=== PATIENT | female | born 1985 | race Caucasian/White ===

== ENCOUNTER 2016-08-18 19:05 | Emergency (ER) | payer SELFPAY ==
[~2016-08-18] VITALS: Ht 165.1 cm; Wt 81.6 kg
[~2016-08-18 19:05] MED LIST: CEPH-507 PO; CEPH500C PO; FLUO20CA25; GABA-488 PO; METR500T21 PO; NAPR500T PO; OMEP20CA12; ONDA8TAB13 PO; RT-ALBUINH; TRAZ-28
[2016-08-18 20:19] LABS: BILIRUBIN,URINE NEGATIVE (NEGATIVE); KETONES,URINE NEGATIVE (NEGATIVE); LEUKOCYTE ESTERASE ,URINE NEGATIVE (NEGATIVE); NITRITE,URINE NEGATIVE (NEGATIVE); PH,URINE 6 (5-9); PROTEIN,URINE NEGATIVE (NEGATIVE); UROBILINOGEN,URINE NORMAL (NORMAL)
[2016-08-18 20:29] LABS: SQUAMOUS EPITHELIAL CELL,UR 0-2 /HPF; WBC,URINE 0-2 /HPF
[2016-08-18 20:29] LABS: BASOPHILS # (AUTO) 0.1 10^3/uL (0.0-0.1); BASOPHILS % (AUTO) 1 % (0-10); EOSINOPHILS # (AUTO) 0.6 10^3/uL (0.0-0.3); EOSINOPHILS % (AUTO) 5 % (0-10); LYMPHOCYTES # (AUTO) 3.4 X 10^3 (1.0-4.0); LYMPHOCYTES % (AUTO) 31 % (12-44); MEAN CORPUSCULAR HEMOGLOBIN 31 PG (25-34); MEAN CORPUSCULAR HGB CONC 34 G/DL (32-36); MEAN CORPUSCULAR VOLUME 92 FL (80-99); MEAN PLATELET VOLUME 9.4 FL (7.4-10.4); MONOCYTES # (AUTO) 0.8 X 10^3 (0.0-1.0); MONOCYTES % (AUTO) 8 % (0-12); NEUTROPHILS # (AUTO) 6.2 X 10^3 (1.8-7.8); NEUTROPHILS % (AUTO) 56 % (42-75); PLATELET COUNT 290 10^3/uL (130-400); RED BLOOD COUNT 4.68 10^6/uL (4.35-5.85); RED CELL DISTRIBUTION WIDTH 13.4 % (10.0-14.5); WHITE BLOOD COUNT 11.1 10^3/uL (4.3-11.0)
--- NOTE | 2016-08-18 20:37 | ED Abdominal Pain ---
General Chief Complaint: Abdominal/GI Problems Stated Complaint: STOMACH PAIN/VOMITING Nursing Triage Note: c/o umbilical pain with daily vomitting [id number]. reports upper abdominal pain today Sepsis Screen: No Definite Risk Source of Information: Patient Exam Limitations: No Limitations History of Present Illness Time Seen By Provider: 20:35 Initial Comments To ER with epigastric abdominal pain and. Umbilical abdominal pain. This pain has been daily associate with nausea. States that she cannot quit vomiting. States that she has intermittent constipation but no diarrhea. No fevers or chills. This been present for about 14 days and has been worse since she recently got out of detention but was present before she went to detention. Timing/Duration: 1-2 Days Severity/Quality: Moderate Radiation: No Radiation Associated Symptoms: Nausea/Vomiting Allergies and Home Medications Allergies Coded Allergies: No Known Drug Allergies (Unverified , 11/27/15) Home Medications Fluoxetine HCl 20 Mg Capsule, #30 (Reported) Trazodone HCl 50 Mg Tablet, 100 HS, #60 (Reported) Review of Systems Constitutional: see HPI EENTM: No Symptoms Reported Respiratory: No Symptoms Reported Cardiovascular: No Symptoms Reported Gastrointestinal: See HPI, Abdominal Pain, Constipated, Denies Diarrhea, Nausea , Vomiting Genitourinary: No Symptoms Reported Musculoskeletal: no symptoms reported Skin: no symptoms reported Psychiatric/Neurological: No Symptoms Reported Endocrine: No Symptoms Reported Past Jsiuank-Xvgxcp-Uufnrp Hx Patient Social History Alcohol Use: Denies Use Recreational Drug Use: No Smoking Status: Current Everyday Smoker Type Used: Cigarettes 2nd Hand Smoke Exposure: Yes Recent Foreign Travel: No Contact w/Someone Who Travel: No Recent Infectious Disease Expo: No Recent Hopitalizations: No Immunizations Up To Date Tetanus Booster (TDap): Unknown Seasonal Allergies Seasonal Allergies: No Surgeries HX Surgeries: Yes (Toenail, approx 1997, pilonidal cyst) Surgeries: Section, Tubal Ligation Respiratory Hx Respiratory Disorders: Yes Respiratory Disorders: Asthma Cardiovascular Hx Cardiac Disorders: No Neurological Hx Neurological Disorders: No Reproductive System : No Hx Reproductive Disorders: No Sexually 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 Disease: Yes (CHLAMYDIA) 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 Genitourinary Hx Genitourinary Disorders: No Gastrointestinal Hx Gastrointestinal Disorders: Yes Gastrointestinal Disorders: Gastroesophageal Reflux Musculoskeletal Hx Musculoskeletal Disorders: Yes (carpal tunnel) Endocrine Hx Endocrine Disorders: Yes Endocrine Disorders: Diabetes, Non-Insulin dep HEENT HX ENT Disorders: No Psychosocial Hx Psychiatric Problems: Yes (Hx Bipolar disorder) Behavioral Health Disorders: Sleep Difficulties, Anxiety, Bipolar, Depression Blood Transfusions Hx Blood Disorders: No Family Medical History Significant Family History: No Pertinent Family Hx Physical Exam Vital Signs VS - Last 72 Hours, by Label 08/18/16 08/18/16 08/18/16 19:49 20:45 20:46 Temp 98.4 98.4 98.4 Pulse 79 Resp 18 B/P (MAP) 112/97 Pulse Ox 99 O2 Delivery Room Air Capillary Refill : Less Than 3 Seconds General Appearance: WD/WN, no apparent distress HEENT: PERRL/EOMI, normal ENT inspection Neck: non-tender, full range of motion Respiratory: normal breath sounds, no respiratory distress, no accessory muscle use Cardiovascular: regular rate, rhythm, no murmur Gastrointestinal: normal bowel sounds, soft, tenderness Extremities: normal range of motion, non-tender Neurologic/Psychiatric: alert, normal mood/affect, oriented x 3 Skin: normal color, warm/dry Progress/Results/Core Measures Results/Orders Lab Results Laboratory Tests Test 08/18/16 20:10 08/18/16 20:24 Range/Units Urine Color YELLOW Urine Clarity CLEAR Urine pH 6 5-9 Urine Specific Welch 1.015 L 1.016-1.022 Urine Protein NEGATIVE NEGATIVE Urine Glucose (UA) NEGATIVE NEGATIVE Urine Ketones NEGATIVE NEGATIVE Urine Nitrite NEGATIVE NEGATIVE Urine Bilirubin NEGATIVE NEGATIVE Urine Urobilinogen NORMAL NORMAL MG/DL Urine Leukocyte Esterase NEGATIVE NEGATIVE Urine RBC (Auto) NEGATIVE NEGATIVE Urine RBC NONE /HPF Urine WBC 0-2 /HPF Urine Squamous Epithelial Cells 0-2 /HPF Urine Crystals NONE /LPF Urine Bacteria NEGATIVE /HPF Urine Casts NONE /LPF Urine Mucus NEGATIVE /LPF Urine Culture Indicated NO Urine Opiates Screen NEGATIVE NEGATIVE Urine Oxycodone Screen NEGATIVE NEGATIVE Urine Methadone Screen NEGATIVE NEGATIVE Urine Propoxyphene Screen NEGATIVE NEGATIVE Urine Barbiturates Screen NEGATIVE NEGATIVE Ur Tricyclic Antidepressants Screen NEGATIVE NEGATIVE Urine Phencyclidine Screen NEGATIVE NEGATIVE Urine Amphetamines Screen NEGATIVE NEGATIVE Urine Methamphetamines Screen NEGATIVE NEGATIVE Urine Benzodiazepines Screen NEGATIVE NEGATIVE Urine Cocaine Screen NEGATIVE NEGATIVE Urine Cannabinoids Screen NEGATIVE NEGATIVE White Blood Count 11.1 H 4.3-11.0 10^3/uL Red Blood Count 4.68 4.35-5.85 10^6/uL Hemoglobin 14.4 11.5-16.0 G/DL Hematocrit 43 35-52 % Mean Corpuscular Volume 92 80-99 FL Mean Corpuscular Hemoglobin 31 25-34 PG Mean Corpuscular Hemoglobin Concent 34 32-36 G/DL Red Cell Distribution Width 13.4 10.0-14.5 % Platelet Count 290 130-400 10^3/uL Mean Platelet Volume 9.4 7.4-10.4 FL Neutrophils (%) (Auto) 56 42-75 % Lymphocytes (%) (Auto) 31 12-44 % Monocytes (%) (Auto) 8 0-12 % Eosinophils (%) (Auto) 5 0-10 % Basophils (%) (Auto) 1 0-10 % Neutrophils # (Auto) 6.2 1.8-7.8 X 10^3 Lymphocytes # (Auto) 3.4 1.0-4.0 X 10^3 Monocytes # (Auto) 0.8 0.0-1.0 X 10^3 Eosinophils # (Auto) 0.6 H 0.0-0.3 10^3/uL Basophils # (Auto) 0.1 0.0-0.1 10^3/uL Sodium Level 137 135-145 MMOL/L Potassium Level 4.1 3.6-5.0 MMOL/L Chloride Level 106 98-107 MMOL/L Carbon Dioxide Level 20 L 21-32 MMOL/L Anion Gap 11 5-14 MMOL/L Blood Urea Nitrogen 11 7-18 MG/DL Creatinine 0.70 0.60-1.30 MG/DL Estimat Glomerular Filtration Rate > 60 BUN/Creatinine Ratio 16 Glucose Level 83 70-105 MG/DL Calcium Level 9.8 8.5-10.1 MG/DL Total Bilirubin 0.4 0.1-1.0 MG/DL Aspartate Amino Transf (AST/SGOT) 20 5-34 U/L Alanine Aminotransferase (ALT/SGPT) 28 0-55 U/L Alkaline Phosphatase 64 40-136 U/L Total Protein 7.8 6.4-8.2 G/DL Albumin 4.5 3.2-4.5 G/DL Lipase 33 8-78 U/L My Orders Orders - ANDREI MARIE [employer] Cbc With Automated Diff (08/18/16 19:48) Comprehensive Metabolic Panel (08/18/16 19:48) Lipase (08/18/16 19:48) Urine Bedside (08/18/16 19:48) Ua Culture If Indicated (08/18/16 19:48) Drug Screen Stat (Urine) (08/18/16 20:34) Ct Abdomen/Pelvis Wo (08/18/16 20:34) Prochlorperazine Injection (Compazine In (08/18/16 20:45) Diphenhydramine Injection (Benadryl Inje (08/18/16 20:45) Medications Given in ED Current Medications Medications Dose Ordered Sig/Lori Route Start Time Stop Time Status Last Admin Dose Admin Diphenhydramine HCl 25 mg ONCE ONCE IM 08/18/16 20:45 08/18/16 20:46 DC 08/18/16 20:46 25 MG Prochlorperazine Edisylate 10 mg ONCE ONCE IM 08/18/16 20:45 08/18/16 20:46 DC 08/18/16 20:45 10 MG Vital Signs/I&O Vital Sign - Last 12Hours 08/18/16 08/18/16 08/18/16 19:49 20:45 20:46 Temp 98.4 98.4 98.4 Pulse 79 Resp 18 B/P (MAP) 112/97 Pulse Ox 99 O2 Delivery Room Air Blood Pressure Mean: 102 Point of Care Testing Urine -Bedside: Negative Diagnostic Imaging Diagonstic Imaging: CT Comments NAME: MISHA MALAGON [facility] REC#: [id number] PT STATUS: REG ER : 1985 PHYSICIAN: ANDREI MARIE [employer] ADMIT DATE: 08/18/16/ER Draft Date of Exam:08/18/16 CT ABDOMEN/PELVIS WO PROCEDURE: CT abdomen and pelvis without contrast. TECHNIQUE: Multiple contiguous axial images were obtained through the abdomen and pelvis without the use of intravenous contrast. INDICATION: Abdominal pain with nausea and vomiting x2 weeks. Loss of appetite. CORRELATION STUDY: 11/27/2015 FINDINGS: LOWER THORAX: Clear. LIVER: Unremarkable on unenhanced imaging. GALLBLADDER: Contracted but otherwise unremarkable. No suggestion for bile duct dilatation. SPLEEN: Unremarkable. PANCREAS: Unremarkable. ADRENAL GLANDS: Unremarkable. KIDNEYS: Normal configuration. No calcification or obstruction. ABDOMINAL AORTA: Unremarkable, nonaneurysmal. GASTROINTESTINAL TRACT: There is mild diffuse gas and fluid distention of the gastrointestinal tract. Stomach contains retained gastric contents. The colon also demonstrates mild diffuse distention with retained stool and gas. Normal appendix is present. Definitive obstruction is not suggested. Generalized haziness about the mesentery without significant abdominal ascites. Uncomplicated umbilical hernia with fat. URINARY BLADDER: Unremarkable. REPRODUCTIVE: Uterus is very mildly prominent. Adnexa are relatively unremarkable. Probable tubal ligation clips. OSSEOUS STRUCTURES: No acute abnormality. IMPRESSION: 1. Somewhat overall diffuse prominent appearance about the gastrointestinal tract. This is nonspecific, the possibility of enteritis and/or less likely colitis would be difficult to exclude. Given symptoms, if further assessment is desired, consideration for followup nonemergent CT enterography may be of additional benefit. 2. Remainder of the examination demonstrates no acute abnormality. Dictated on workstation # [id number] Dict: 08/18/162102 Trans: 08/18/162110 [facility] [id number] Interpreted by: ARACELI ABREU DO Electronically signed by: Departure Impression Impression: Primary Impression: Nausea and vomiting Additional Impression: Enteritis Disposition: HOME, SELF-CARE Condition: Stable Departure-Patient Inst. Decision time for Depature: 21:20 Referrals: [facility] (PCP/Family) Primary Care Physician Patient Instructions: Nausea and Vomiting, Adult Add. Discharge Instructions: 1. Small frequent sips of liquids such as Gatorade. For the next 24 hours you should only use clear liquids. If There is any thing that requires chewing you should not eat it. 2. Follow-up with her regular doctor later this week for recheck. They may wish to check a stool sample. All discharge instructions reviewed with patient and/or family. Voiced understanding. Scripts Ondansetron (Zofran Odt) 8 Mg Tab.rapdis 8 MG PO Q6H Y for NAUSEA/VOMITING-1ST LINE, #14 TAB Prov: ANDREI MARIE [employer] 08/18/16 ANDREI MARIE [employer] August 18, 2016 20:37
[2016-08-18] MEDS ORDERED: PROCHLORPERAZINE 10 MG/2ML INJ (COMPAZINE) IM ONE (20:45)
[2016-08-18] MEDS ORDERED: diphenhydrAMINE 50 MG/ML INJ (BENADRYL) IM ONE (20:45)
[2016-08-18 20:51] LABS: ALANINE AMINOTRANSFERASE 28 U/L (0-55); ALBUMIN 4.5 G/DL (3.2-4.5); ANION GAP 11 MMOL/L (5-14); ASPARTATE AMINO TRANSFERASE 20 U/L (5-34); BILIRUBIN,TOTAL 0.4 MG/DL (0.1-1.0); BLOOD UREA NITROGEN 11 MG/DL (7-18); BUN/CREATININE RATIO 16; CALCIUM 9.8 MG/DL (8.5-10.1); CARBON DIOXIDE 20 MMOL/L (21-32); CHLORIDE 106 MMOL/L (98-107); GFR ESTIMATED > 60; GLUCOSE 83 MG/DL (70-105); LIPASE 33 U/L (8-78); POTASSIUM 4.1 MMOL/L (3.6-5.0); SODIUM 137 MMOL/L (135-145); TOTAL PROTEIN 7.8 G/DL (6.4-8.2)
--- NOTE | 2016-08-18 21:12 | Diagnostic Imaging Report ---
PROCEDURE: CT abdomen and pelvis without contrast. TECHNIQUE: Multiple contiguous axial images were obtained through the abdomen and pelvis without the use of intravenous contrast. INDICATION: Abdominal pain with nausea and vomiting x2 weeks. Loss of appetite. CORRELATION STUDY: 11/27/2015 FINDINGS: LOWER THORAX: Clear. LIVER: Unremarkable on unenhanced imaging. GALLBLADDER: Contracted but otherwise unremarkable. No suggestion for bile duct dilatation. SPLEEN: Unremarkable. PANCREAS: Unremarkable. ADRENAL GLANDS: Unremarkable. KIDNEYS: Normal configuration. No calcification or obstruction. ABDOMINAL AORTA: Unremarkable, nonaneurysmal. GASTROINTESTINAL TRACT: There is mild diffuse gas and fluid distention of the gastrointestinal tract. Stomach contains retained gastric contents. The colon also demonstrates mild diffuse distention with retained stool and gas. Normal appendix is present. Definitive obstruction is not suggested. Generalized haziness about the mesentery without significant abdominal ascites. Uncomplicated umbilical hernia with fat. URINARY BLADDER: Unremarkable. REPRODUCTIVE: Uterus is very mildly prominent. Adnexa are relatively unremarkable. Probable tubal ligation clips. OSSEOUS STRUCTURES: No acute abnormality. IMPRESSION: 1. Somewhat overall diffuse prominent appearance about the gastrointestinal tract. This is nonspecific, the possibility of enteritis and/or less likely colitis would be difficult to exclude. Given symptoms, if further assessment is desired, consideration for followup nonemergent CT enterography may be of additional benefit. 2. Remainder of the examination demonstrates no acute abnormality. Dictated by: Dictated on workstation # [id number]
[2016-08-18] MEDS ORDERED: ONDA8TAB9 PO (21:22)
[2016-08-18 21:37] VITALS: BP 122/83
== END 2016-08-18 21:37 | disposition home or self-care (01) ==
LOC: EDUNIT# 19:05 → ER 19:08
DX: K52.9 Noninfective gastroenteritis and colitis, unspecified (principal); E11.9 Type 2 diabetes mellitus without complications; F17.210 Nicotine dependence, cigarettes, uncomplicated
CPT/HCPCS: 36415; 74176; 80053; 80306; 81000; 83690; 84703; 85025; 96372; 99282

== ENCOUNTER 2017-06-03 14:07 | Emergency (ER) | payer SELFPAY ==
[~2017-06-03] VITALS: Ht 165.1 cm; Wt 81.6 kg
[~2017-06-03 14:07] MED LIST changes: +NAPR-1071 PO; -NAPR500T PO; +ONDA8TAB9 PO
--- NOTE | 2017-06-03 14:46 | ED General ---
General Chief Complaint: General Problems/Pain Stated Complaint: RT LEG PAIN POSS FROM MRSA IN RT FOOT Nursing Triage Note: Pt c/o pain in R foot and up R leg. Pt reports she was just recently hospitalized at [place] for MRSA infection in R foot. Pt reports she has been on pain medication since and is now out of her medication. Pt states pain continues to get worse. Nursing Sepsis Screen: No Definite Risk Source of Information: Patient Exam Limitations: No Limitations History of Present Illness Date Seen by Provider: Jun 03, 2017 Time Seen by Provider: 14:46 Allergies and Home Medications Allergies Coded Allergies: No Known Drug Allergies (Unverified , 11/27/15) Home Medications Fluoxetine HCl 20 Mg Capsule, #30 (Reported) Ondansetron 8 Mg Tab.rapdis, 8 MG PO Q6H PRN for NAUSEA/VOMITING-1ST LINE, #14 Prescribed by: ANDREI MARIE on 08/18/162121 Trazodone HCl 50 Mg Tablet, 100 HS, #60 (Reported) Past Ltfjbzj-Ggugvx-Ioixtj Hx Patient Social History Alcohol Use: Denies Use Recreational Drug Use: No Smoking Status: Current Everyday Smoker Type Used: Cigarettes 2nd Hand Smoke Exposure: Yes Recent Foreign Travel: No Contact w/Someone Who Travel: No Recent Infectious Disease Expo: No Recent Hopitalizations: No Immunizations Up To Date Tetanus Booster (TDap): Unknown Seasonal Allergies Seasonal Allergies: No Surgeries History of Surgeries: Yes (Toenail, approx 1997, pilonidal cyst) Surgeries: Section, Tubal Ligation Respiratory History of Respiratory Disorde: Yes Respiratory Disorders: Asthma Cardiovascular History of Cardiac Disorders: No Neurological History of Neurological Disord: No Reproductive System Hx Reproductive Disorders: No Sexually Transmitted Disease: Yes (CHLAMYDIA) 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 Genitourinary History of Genitourinary Disor: No Gastrointestinal History of Gastrointestinal Di: Yes Gastrointestinal Disorders: Gastroesophageal Reflux Musculoskeletal History of Musculoskeletal Dis: Yes (carpal tunnel) Endocrine History of Endocrine Disorders: No Endocrine Disorders: Diabetes, Non-Insulin dep HEENT History of HEENT Disorders: No Cancer History of Cancer: No Psychosocial History of Psychiatric Problem: Yes Behavioral Health Disorders: Sleep Difficulties, Anxiety, Bipolar, Depression Integumentary History of Skin or Integumenta: No Blood Transfusions History of Blood Disorders: No Family Medical History Significant Family History: No Pertinent Family Hx Physical Exam Vital Signs Vital Signs - First Documented 06/03/17 14:35 Temp 97.7 Pulse 82 Resp 18 B/P (MAP) 113/89 (97) Pulse Ox 94 O2 Delivery Room Air Capillary Refill : Less Than 3 Seconds Progress/Results/Core Measures Suspected Sepsis Recent Fever Within 48 Hours: No Infection Criteria Present: None New/Unexplained Altered Menta: No Sepsis Screen: No Definite Risk Sepsis Diagnosis: SIRS Temperature:97.7 Pulse: 82 Respiratory Rate: 18 Blood Pressure 113 /89 Mean: 97 Results/Orders My Orders Orders - JEAN CARLOS SOLIZ Us Venous Lower Ext Rt (06/03/17 15:06) Hydrocodone/Apap 10/325 Tablet (Lortab 1 (06/03/17 15:06) Vital Signs/I&O Vital Sign - Last 12Hours 06/03/17 14:35 Temp 97.7 Pulse 82 Resp 18 B/P (MAP) 113/89 (97) Pulse Ox 94 O2 Delivery Room Air Capillary Refill : Less Than 3 Seconds Blood Pressure Mean: 97 Diagnostic Imaging Diagonstic Imaging: Ultrasound Plain Films/CT/US/NM/MRI: leg Comments US VENOUS LOWER EXT RT INDICATION: Right leg pain. Right leg venous Doppler study was performed in the routine fashion with color flow Doppler and waveform analysis. FINDINGS: The right common femoral vein, superficial femoral vein, popliteal vein and visualized portion of the tibial veins show normal compressibility and venous flow patterns. There is normal augmentation. IMPRESSION: No evidence of deep vein thrombosis of the major veins of the right leg. Dictated by: Dictated on workstation # [id number] Reviewed: Reviewed by Me (radiology report reviewed by me) Departure Impression Impression: Primary Impression: Right foot pain Additional Impression: resolving cellulitis Disposition: 01 HOME, SELF-CARE Condition: Improved Departure-Patient Inst. Decision time for Depature: 16:40 Referrals: NO,LOCAL PHYSICIAN (PCP/Family) Primary Care Physician Patient Instructions: Wound Care (DC) Add. Discharge Instructions: All discharge instructions reviewed with patient and/or family. Voiced understanding. Medications as instructed. Tylenol Extra Strength as directed [id number] for pain. Elevate the right foot on pillows. There with antibacterial soap. Follow-up with your doctor as an outpatient for recheck as previously scheduled or follow-up with the primary care provider of your choice for recheck as an outpatient. Return to the emergency department for worsened pain, swelling, redness, fever, drainage, or any other concerns. Scripts Meloxicam (Meloxicam) 15 Mg Tablet 15 MG PO DAILY, #10 TAB 0 Refills Prov: JEAN CARLOS SOLIZ 06/03/17 Sulfamethoxazole/Trimethoprim (Bactrim Ds Tablet) 1 Each Tablet 1 EACH PO BID, #14 TAB 0 Refills Prov: JEAN CARLOS SOLIZ 06/03/17 Work/School Note: Local [employer] JEAN CARLOS SOLIZ Jun 03, 2017 14:46
[2017-06-03] MEDS ORDERED: HYDROcodone/APAP 10 MG/325 MG (LORTAB) TAB PO STA (15:06)
--- NOTE | 2017-06-03 15:43 | Diagnostic Imaging Report ---
INDICATION: Right leg pain. Right leg venous Doppler study was performed in the routine fashion with color flow Doppler and waveform analysis. FINDINGS: The right common femoral vein, superficial femoral vein, popliteal vein and visualized portion of the tibial veins show normal compressibility and venous flow patterns. There is normal augmentation. IMPRESSION: No evidence of deep vein thrombosis of the major veins of the right leg. Dictated by: Dictated on workstation # [id number]
[2017-06-03] MEDS ORDERED: MELO15TA39 PO (16:42)
[2017-06-03] MEDS ORDERED: SULF1TAB35 PO (16:42)
[2017-06-03] MEDS ORDERED: TRAM50TA2 PO (17:13)
[2017-06-03 17:26] VITALS: BP 123/78
== END 2017-06-03 17:26 | disposition home or self-care (01) ==
LOC: EDUNIT# 14:07 → ER 14:09
DX: L03.115 Cellulitis of right lower limb (principal); K21.9 Gastro-esophageal reflux disease without esophagitis; E11.9 Type 2 diabetes mellitus without complications; F41.9 Anxiety disorder, unspecified; F31.9 Bipolar disorder, unspecified; F17.210 Nicotine dependence, cigarettes, uncomplicated; Z87.59 Personal history of other complications of pregnancy, childbirth and the puerperium; Z98.51 Tubal ligation status
CPT/HCPCS: 99283